=== PATIENT | female | born 1965 | race Asian ===

== ENCOUNTER 2017-02-18 14:17 | Emergency (ER) | payer OTHER ==
[~2017-02-18] VITALS: Ht 157.5 cm; Wt 60.5 kg
[2017-02-18 14:20] VITALS: Ht 157.5 cm; Wt 60.5 kg
--- NOTE | 2017-02-18 16:02 | RADRPT ---
PROCEDURE: US right lower extremity veins. CLINICAL INDICATION: Right leg pain and swelling. TECHNIQUE: Multiple longitudinal and transverse images of the right lower extremity veins were obt ained with duncan scale and color Doppler imaging. The common femoral vein, femoral vein, and poplitea l vein were evaluated. 2D grayscale measurements with compression sonography, pulsed Doppler, color Doppler, and pulsed Doppler with augmentation. COMPARISON: No prior studies are available for comparison. FINDINGS: The right common femoral, femoral and popliteal veins are normally compressible throughout. Color f low demonstrates normal filling of the vessels. Normal waveforms are visualized and there is normal response to augmentation. IMPRESSION: 1. No evidence of deep vein thrombosis involving the right lower extremity. RPTAT: QQ .Duke Louise MD, MD Date Time Electronically viewed and signed by .Duke Louise MD, on 02/18/2017 16:01 .R/
--- NOTE | 2017-02-18 16:05 | ERD ---
ER Documentation Chief Complaint Date/Time DATE: 02/18/17 TIME: 16:00 Chief Complaint right calf pain x 2 days, had surgery a week ago, sent by pmd to r/o dvt HPI This a 51-year-old female who presents to the emergency department today complaining of right leg swelling and some calf cramping for the past couple of days. Patient states that she was sent here by her orthopedic surgeon to rule out a blood clot. States that she had rotator cuff surgery 1 week ago. States she has been riding her stationary bicycle at home. denies any fevers or chills. Denies any chest pain. States that her pain is inspiratory and she has not taken any medications for her pain. ROS All systems reviewed and are negative except as per history of present illness. Medications Home Meds Active Scripts Tramadol HCl (Tramadol HCl) 50 Mg Tablet, 50 MG PO Q4 Y for PAIN, #20 TAB Prov:JANINA RODRIGUEZ PA-C 02/18/17 PMhx/Soc History of Surgery: Yes (RIGHT SHOULDER SUREGERY ) Anesthesia Reaction: No Hx Alcohol Use: No Hx Substance Use: No Hx Tobacco Use: No Smoking Status: Never smoker Physical Exam Vitals Vital Signs Date Time Temp Pulse Resp B/P Pulse Ox O2 Delivery O2 Flow Rate FiO2 02/18/17 16:52 98.6 80 17 118/72 100 Room Air 02/18/17 14:20 99.3 76 18 135/77 100 Physical Exam Const: pleasant, talkative, no acute distress Head: Atraumatic Eyes: Normal Conjunctiva ENT: Normal External Ears, Nose and Mouth. Neck: Full range of motion..~ No meningismus. Resp: Clear to auscultation bilaterally Cardio: Regular rate and rhythm, no murmurs Skin: No petechiae or rashes Back: No midline or flank tenderness Ext: Right leg with no erythema or warmth. Mild tenderness to right gastroc. Pulses 2+. Distal neurovascularly intact Neur: Awake and alert Psych: Normal Mood and Affect Results 24 hrs DIAGNOSTIC IMAGING REPORT Patient: SHANTELL FREED : 1965 Age: 51 Sex: F MR #: [id number] DOS: 02/18/17 0000 Ordering MD: JANINA RODRIGUEZ PA-C Location: [facility] Room/Bed: PROCEDURE: US right lower extremity veins. CLINICAL INDICATION: Right leg pain and swelling. TECHNIQUE: Multiple longitudinal and transverse images of the right lower extremity veins were obtained with duncan scale and color Doppler imaging. The common femoral vein, femoral vein, and popliteal vein were evaluated. 2D grayscale measurements with compression sonography, pulsed Doppler, color Doppler, and pulsed Doppler with augmentation. COMPARISON: No prior studies are available for comparison. FINDINGS: The right common femoral, femoral and popliteal veins are normally compressible throughout. Color flow demonstrates normal filling of the vessels. Normal waveforms are visualized and there is normal response to augmentation. IMPRESSION: 1. No evidence of deep vein thrombosis involving the right lower extremity. RPTAT: QQ .Duke Louise MD, MD Date Time Electronically viewed and signed by .Duke Louise MD, on 02/18/2017 16:01 .R/ CC: JANINA RODRIGUEZ PA-C Procedures/MDM This 51-year-old female presents the emergency department today after being sent by her orthopedic surgeon Dr. Diaz at [facility] to rule out a DVT and PE. Patient had been complaining of some right leg swelling and some calf pain for the past couple of days. She was also apparently complaining of some shortness of breath. Patient is talkative in the exam room. She is afebrile and otherwise well-appearing. Her respirations are 18 her oxygen saturations 100%. She is not tachycardic. I do not feel the patient requires a PE workup at this time as I have low suspicion for that. Patient did have shoulder surgery 1 week ago for rotator cuff repair and given her complaints of right leg swelling I did obtain a ultrasound to rule out a DVT. Right leg lower extremity ultrasound shows no evidence of deep vein thrombosis involving the right lower extremity. Patient indicated that her shortness of breath appeared to be more inspiratory and she thinks it is related to pain probably coming from her shoulder. She did indicate that she has not taken any medication for pain. Patient symptoms at this time is consistent with right lower extremity pain and swelling. Low suspicion for DVT, PE. Patient was instructed to follow back up with her orthopedic surgeon. Patient understood. I did place a call to Rosita Gallo PA-C for Dr. Marcos, per the request of the patient and I did explain to provider Sabino that I did not do a PE workup. I did notify her of the negative Doppler ultrasound. I discussed with her that the patient was not taking the [place] and she did indicate that I could prescribe the patient Percocet however I feel the patient will continue to have the nausea and dizziness should she be given a prescription for Percocet. I did explain to her that I would be happy to write her for a prescription for tramadol. Provider Sabino did indicate that she did not want the patient on high-dose NSAIDs given the type of surgery that the patient had and use of cadaver graft. I have explained this to the patient. Patient may follow-up next week in clinic. Discussed the patient with Dr. Jackson and he is in agreement with the plan. Departure Diagnosis: Primary Impression: Pain of right leg Condition: JANINA Gregg PA-C Feb 18, 2017 16:05
[2017-02-18] MEDS ORDERED: TRAM50TA2 PO (16:43)
[2017-02-18 16:52] VITALS: BP 118/72; PULSE 80; RESP 17; TEMP 98.6
== END 2017-02-18 16:53 | disposition home or self-care (01) ==
LOC: FTE 14:17
DX: M79.604 Pain in right leg (principal)
CPT/HCPCS: 93971